=== PATIENT | male | born 1945 | race African-American/Black ===

== ENCOUNTER 2023-04-29 07:01 | Day surgery (SDC) | payer MEDICARE ==
[2023-04-28 13:46] VITALS: BMI 32.2
[2023-04-29] MEDS ORDERED: Lidocaine 1% PF 5 ML VIAL ONE (07:35)
[2023-04-29] MEDS ORDERED: PROPOFOL 40 ML ONE (08:27)
[2023-04-29] MEDS ORDERED: Glycopyrrolate 0.2 MG/ML 5 ML SYRINGE ONE (08:28)
== END 2023-04-29 09:35 | disposition home or self-care (01) ==
LOC: CSHSDC 07:01
PROVIDERS: ATTEND Internal Medicine Gastroenterology
PROC: 0DBN8ZZ Excision of Sigmoid Colon, Via Natural or Artificial Opening Endoscopic (ICD-10-PCS; principal; 2023-04-29)
PROC: 0DBL8ZZ Excision of Transverse Colon, Via Natural or Artificial Opening Endoscopic (ICD-10-PCS; 2023-04-29)
DX: Z12.11 Encounter for screening for malignant neoplasm of colon (principal); D12.5 Benign neoplasm of sigmoid colon; K63.5 Polyp of colon; K57.30 Diverticulosis of large intestine without perforation or abscess without bleeding; K64.8 Other hemorrhoids; K63.89 Other specified diseases of intestine; I10 Essential (primary) hypertension; E11.9 Type 2 diabetes mellitus without complications; M19.90 Unspecified osteoarthritis, unspecified site; E78.5 Hyperlipidemia, unspecified; Z86.010 Personal history of colon polyps; Z79.82 Long term (current) use of aspirin; Z79.899 Other long term (current) drug therapy
CPT/HCPCS: 88305; J2704